=== PATIENT | male | born 1995 | race Two or more races ===

== ENCOUNTER 2019-01-24 02:55 | Emergency (ER) | payer MEDICAID ==
[~2019-01-24] VITALS: Ht 167.6 cm; Wt 72.7 kg
[2019-01-24] MEDS ORDERED: ondansetron/PF 4mg/2ml inj IV ONE (03:00)
[2019-01-24] MEDS ORDERED: normal saline 1000ml 1,000 ML IVB ONE (03:01)
--- NOTE | 2019-01-24 04:15 | NUR ---
PT BROTHER CECELIA (ANNAMARIE) [phone]. Called and left message pt is ready for dischard and bring clean clothing.
[2019-01-24 07:40] VITALS: BP 114/61
== END 2019-01-24 07:42 | disposition home or self-care (01) ==
LOC: EDBD 02:56 → ER 02:56
DX: F10.129 Alcohol abuse with intoxication, unspecified (principal); F41.9 Anxiety disorder, unspecified; R11.10 Vomiting, unspecified
CPT/HCPCS: 36415; 80320; 96361; 96374; 99284; J2405; J7030